=== PATIENT | female | born 1990 | race Caucasian/White ===

== ENCOUNTER 2016-08-13 03:52 | Emergency (ER) | payer OTHER ==
[~2016-08-13 03:52] MED LIST: ADVIL200 M1 PO; AMOXICILLIN500 M1 PO; AUGMENTIN875 M1 PO; FLOXIN10 ML AU; GUAIFENESIN 100 MG/5 ML PO; IBUPROFEN800 MG PO; MOTRIN600 M1 PO; NO MEDICATIONS; PEPTO-BISM525 MG/15; SYNTHROID75 MCG; VICODIN 5/1 TAB 5/50 PO; VICODIN 5/500 T1 TAB
[2016-08-13 04:15] LABS: INFLUENZA A NEG (NEG); INFLUENZA B NEG (NEG)
[2016-08-13] MEDS ORDERED: AMOXICILLIN500 M1 PO (04:31)
== END 2016-08-13 04:34 | disposition home or self-care (01) ==
LOC: SED 03:52
PROVIDERS: Emergency Medicine
DX: J02.9 Acute pharyngitis, unspecified (principal); Z90.49 Acquired absence of other specified parts of digestive tract
CPT/HCPCS: 87651; 87804; 87880; 99283